=== PATIENT | female | born 1960 | race Two or more races ===

== ENCOUNTER 2021-08-11 17:19 | Emergency (ER) | payer MEDICAID, OTHER ==
[~2021-08-11] VITALS: Ht 157.5 cm; Wt 95.3 kg
[2021-08-11 17:24] VITALS: BP 148/75
[2021-08-11] MEDS ORDERED: KETOROLAC TROMETH 30 MG/ML 1ML VIAL IM ONE (20:15)
[2021-08-11] MEDS ORDERED: IBUP800T27 PO (20:26)
[2021-08-11] MEDS ORDERED: METH500T22 PO (20:26)
== END 2021-08-11 20:35 | disposition home or self-care (01) ==
LOC: ER 17:19
DX: S13.4XXA Sprain of ligaments of cervical spine, initial encounter (principal); S20.02XA Contusion of left breast, initial encounter; S30.1XXA Contusion of abdominal wall, initial encounter; I10 Essential (primary) hypertension; E11.9 Type 2 diabetes mellitus without complications; Z79.1 Long term (current) use of non-steroidal anti-inflammatories (NSAID); Z79.899 Other long term (current) drug therapy; V89.2XXA Person injured in unspecified motor-vehicle accident, traffic, initial encounter; Y93.89 Activity, other specified; Y92.89 Other specified places as the place of occurrence of the external cause; Y99.8 Other external cause status
CPT/HCPCS: 71046; 72040; 96372; 99284; J1885